=== PATIENT | male | born 1995 | race Caucasian/White ===

== ENCOUNTER 2019-04-28 09:51 | Emergency (ER) | payer SELFPAY ==
[~2019-04-28] VITALS: Ht 175.3 cm; Wt 105.3 kg
[2019-04-28 10:09] VITALS: BP 136/86
--- NOTE | 2019-04-28 10:26 | NUR ---
PT REPORTS L FACIAL SWELLING HAS BEEN ON ANTIBIOTICS FOR THE PAST SEVERAL DAY WO RELIEF
== END 2019-04-28 11:30 | disposition home or self-care (01) ==
LOC: ED 11:21
DX: K02.9 Dental caries, unspecified (principal); R51 Headache
CPT/HCPCS: 99283